=== PATIENT | male | born 1965 | race Caucasian/White ===

== ENCOUNTER 2019-08-15 18:57 | Emergency (ER) | payer OTHER ==
[~2019-08-15] VITALS: Ht 170.2 cm; Wt 97.5 kg
[2019-08-15] MEDS ORDERED: LOTREL 10-40 M1 EACH (19:24)
[2019-08-15] MEDS ORDERED: DIAZEPAM10 MG PO (20:19)
== END 2019-08-15 20:36 | disposition home or self-care (01) ==
LOC: ER 18:57
DX: M62.830 Muscle spasm of back (principal)

== ENCOUNTER 2020-01-22 12:53 | Emergency (ER) | payer OTHER ==
[~2020-01-22] VITALS: Ht 175.3 cm; Wt 97.5 kg
[~2020-01-22 12:53] MED LIST: DIAZEPAM10 MG PO; LOTREL 10-40 M1 EACH
[2020-01-22] MEDS ORDERED: LOTREL 10-40 M1 EACH (12:56)
== END 2020-01-22 14:50 | disposition home or self-care (01) ==
LOC: ER 12:53
DX: M25.512 Pain in left shoulder (principal); M54.2 Cervicalgia

== ENCOUNTER 2021-02-11 10:35 | Emergency (ER) | payer OTHER ==
[~2021-02-11] VITALS: Ht 172.7 cm; Wt 102.1 kg
== END 2021-02-11 15:38 | disposition home or self-care (01) ==
LOC: ER 10:35
DX: R10.9 Unspecified abdominal pain (principal); I10 Essential (primary) hypertension; E11.9 Type 2 diabetes mellitus without complications

== ENCOUNTER → 2024-10-14 | Emergency (ER) | payer OTHER ==
[~2024-10-14] VITALS: Ht 172.7 cm; Wt 90.7 kg
[~2024-10-14] MED LIST changes: +[UNRECOGNIZED DRUG - OTHER]
== END | disposition home or self-care (01) ==
LOC: ER 10:42
DX: M77.11 Lateral epicondylitis, right elbow (principal)

== ENCOUNTER 2024-10-17 19:14 | Emergency (ER) | payer OTHER ==
[~2024-10-17] VITALS: Ht 172.7 cm; Wt 90.7 kg
[~2024-10-17 19:14] MED LIST changes: -[UNRECOGNIZED DRUG - OTHER]
[2024-10-17] MEDS ORDERED: [UNRECOGNIZED DRUG - OTHER] (20:21)
[2024-10-17] MEDS ORDERED: KETOROLAC TROMETHAMINE 60 MG VIAL IM ONE ×2 (20:45→20:54)
[2024-10-17] MEDS ORDERED: ORPHENADRINE CITRATE 30 MG/ML AMPUL ONE (20:54)
[2024-10-17] MEDS ORDERED: ORPHENADRINE CITRATE 30 MG/ML AMPUL IM ONE (21:00)
== END 2024-10-17 22:40 | disposition home or self-care (01) ==
LOC: ER 19:16
DX: M77.8 Other enthesopathies, not elsewhere classified (principal); M54.50 Low back pain, unspecified